=== PATIENT | male | born 1985 | race African-American/Black ===

== ENCOUNTER → 2016-04-27 | Outpatient (CLI) | payer OTHER ==
[2015-04-17 03:07] VITALS: BP 131/82
--- NOTE | 2016-04-27 15:45 | KCIC ---
PROCEDURE Complete renal ultrasound. HISTORY Elevated serum creatinine. TECHNIQUE Real-time ultrasound imaging of the kidneys and the bladder is performed. COMPARISON None. FINDINGS Right kidney length 10.2 cm. Left kidney length 10.9 cm. No hydronephrosis. Corticomedullary differentiation is normal. Cortical echotexture is probably normal. No evidence of renal calculus. No renal mass is seen. Bladder nearly completely decompressed, clinical therapist notes patient had voided. Evaluation of the bladder is limited. Ureteral jets are not seen. IMPRESSION No hydronephrosis. Electronically signed by: Aaron Arguello MD (Apr 27, 2016 15:44:56)
== END | disposition home or self-care (01) ==
LOC: KCIC US 13:57
PROVIDERS: ATTEND Physician Assistant Medical
DX: R79.89 Other specified abnormal findings of blood chemistry (principal)
CPT/HCPCS: 76770